=== PATIENT | female | born 2000 | race Caucasian/White ===

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

== ENCOUNTER 2022-01-12 14:48 | Outpatient (CLI) | payer BC | END 2022-01-12 14:49 | disposition home or self-care (01) | LOC: LABBT 14:48 | PROVIDERS: ATTEND Urology | DX: N20.0 Calculus of kidney (principal); Z20.822 Contact with and (suspected) exposure to COVID-19 | CPT/HCPCS: U0003; U0005 ==

== ENCOUNTER 2022-01-17 08:40 | Day surgery (SDC) | payer BC ==
[2022-01-13 14:32] VITALS: BMI 25.6
[2022-01-17] MEDS ORDERED: HYDROmorphone 0.5 MG/0.5 ML SYRINGE ONE (09:52)
[2022-01-17] MEDS ORDERED: Famotidine/PF 20 mg/2ml Vial ONE (09:52)
[2022-01-17] MEDS ORDERED: fentaNYL Citrate/PF 100 MCG/2 ML SYRINGE ONE (09:52)
[2022-01-17] MEDS ORDERED: Midazolam HCl 2 mg/2 ml Vial ONE (09:52)
[2022-01-17] MEDS ORDERED: Lidocaine 1% PF 5 ML VIAL ONE (10:08)
[2022-01-17] MEDS ORDERED: Metoclopramide HCl 10 MG/2 ML VIAL ONE (10:08)
[2022-01-17] MEDS ORDERED: Dexamethasone 20 MG/5 ML VIAL ONE (10:08)
[2022-01-17] MEDS ORDERED: PROPOFOL 200 MG/20 ML VIAL ONE (10:08)
[2022-01-17] MEDS ORDERED: Ondansetron PF 4 MG/2 ML Vial ONE (10:08)
[2022-01-17] MEDS ORDERED: HYDROcodone/Acetaminophen 5/325 mg Tablet ONE (12:30)
[2022-01-17] MEDS ORDERED: Ondansetron ODT 4 MG TAB ONE (13:44)
== END 2022-01-17 13:50 | disposition home or self-care (01) ==
LOC: SDC 08:40
PROVIDERS: ATTEND Urology
PROC: 0TF4XZZ Fragmentation in Left Kidney Pelvis, External Approach (ICD-10-PCS; principal; 2022-01-17)
DX: N20.0 Calculus of kidney (principal); Z79.890 Hormone replacement therapy; Z91.018 Allergy to other foods; Z91.040 Latex allergy status
CPT/HCPCS: J1100; J1170; J2250; J2405; J2704; J2765; Q0162; S0028

== ENCOUNTER 2022-01-25 09:12 | Outpatient (CLI) | payer BC | END 2022-01-25 09:13 | disposition home or self-care (01) | LOC: BICRAD 09:12 | PROVIDERS: ATTEND Pediatrics | DX: N20.0 Calculus of kidney (principal) | CPT/HCPCS: 74018 ==